=== PATIENT | male | born 1995 | race Two or more races ===

== ENCOUNTER 2017-03-12 15:29 | Emergency (ER) | payer SELFPAY ==
[~2017-03-12] VITALS: Ht 177.8 cm; Wt 70.0 kg
[2017-03-12] MEDS ORDERED: KETOROLAC TROMETHAMINE 60 MG/2 ML VIAL IM ONE (17:00)
[2017-03-12] MEDS ORDERED: HYDROCODONE/ACETAMINOPHEN 10-325 MG TABLET PO ONE (17:00)
[2017-03-12 22:16] VITALS: BP 111/74
[2017-03-12] MEDS ORDERED: LIDOCAINE HCL 5% TRANSDERMAL PATCH TD ONE (22:30)
== END 2017-03-12 22:54 | disposition home or self-care (01) ==
LOC: EMS 15:32
DX: S33.5XXA Sprain of ligaments of lumbar spine, initial encounter (principal); S20.212A Contusion of left front wall of thorax, initial encounter; R91.1 Solitary pulmonary nodule; F17.210 Nicotine dependence, cigarettes, uncomplicated; V49.50XA Passenger injured in collision with unspecified motor vehicles in traffic accident, initial encounter; Y93.89 Activity, other specified; Y92.89 Other specified places as the place of occurrence of the external cause; Y99.8 Other external cause status
CPT/HCPCS: 71101; 72100; 96372; 99284; J1885